=== PATIENT | female | born 1990 | race Hispanic/Latino ===

== ENCOUNTER → 2022-03-22 | Outpatient (CLI) | payer OTHER ==
[~2022-03-22] VITALS: Ht 2.5 cm; Wt 83.9 kg
== END | disposition home or self-care (01) ==
LOC: DTH 10:56
PROVIDERS: ATTEND Surgery
DX: Z71.3 Dietary counseling and surveillance (principal); K21.9 Gastro-esophageal reflux disease without esophagitis; K76.0 Fatty (change of) liver, not elsewhere classified; G47.33 Obstructive sleep apnea (adult) (pediatric); E66.01 Morbid (severe) obesity due to excess calories; Z68.35 Body mass index [BMI] 35.0-35.9, adult
CPT/HCPCS: 97802

== ENCOUNTER → 2022-04-19 | Outpatient (CLI) | payer OTHER | END | disposition home or self-care (01) | LOC: DTH 10:40 | PROVIDERS: ATTEND Surgery | DX: G47.33 Obstructive sleep apnea (adult) (pediatric) (principal); E66.01 Morbid (severe) obesity due to excess calories; K21.9 Gastro-esophageal reflux disease without esophagitis; Z71.3 Dietary counseling and surveillance; Z68.35 Body mass index [BMI] 35.0-35.9, adult | CPT/HCPCS: 97803 ==

== ENCOUNTER → 2023-05-07 | Outpatient (CLI) | payer OTHER ==
[~2023-05-07] VITALS: Ht 2.5 cm; Wt 87.7 kg
== END | disposition home or self-care (01) ==
LOC: DTH 11:04
PROVIDERS: ATTEND Surgery
DX: Z71.3 Dietary counseling and surveillance (principal); E66.09 Other obesity due to excess calories; K21.9 Gastro-esophageal reflux disease without esophagitis; G47.33 Obstructive sleep apnea (adult) (pediatric); Z68.37 Body mass index [BMI] 37.0-37.9, adult
CPT/HCPCS: 97802

== ENCOUNTER → 2023-06-19 | Outpatient (CLI) | payer OTHER | END | disposition home or self-care (01) | LOC: DTH 10:00 | PROVIDERS: ATTEND Surgery | DX: Z71.3 Dietary counseling and surveillance (principal); E66.09 Other obesity due to excess calories; K21.9 Gastro-esophageal reflux disease without esophagitis; G47.33 Obstructive sleep apnea (adult) (pediatric); Z68.37 Body mass index [BMI] 37.0-37.9, adult | CPT/HCPCS: 97803 ==